=== PATIENT | female | born 1955 | race Caucasian/White ===

== ENCOUNTER 2017-06-23 07:09 | Day surgery (SDC) | payer BC ==
[~2017-06-23] VITALS: Ht 175.3 cm; Wt 167.5 kg
[~2017-06-23 07:09] MED LIST: ASPIR 8181 M1 PO; CRESTOR5 MG PO; HYZAAR 100-21 TABLET PO; NORVASC10 MG PO; PRILOSEC20 MG PO; VIMOVO 500-201 EAC1 PO
[2017-06-23 07:44] VITALS: BP 169/87
[2017-06-23 10:38] VITALS: BP 137/64
[2017-06-23 11:25] VITALS: BP 120/80
== END 2017-06-23 11:28 | disposition home or self-care (01) ==
LOC: SDC 07:09
DX: N84.0 Polyp of corpus uteri (principal); N95.0 Postmenopausal bleeding; I10 Essential (primary) hypertension; E66.9 Obesity, unspecified; Z68.43 Body mass index [BMI] 50.0-59.9, adult; K21.9 Gastro-esophageal reflux disease without esophagitis
CPT/HCPCS: 88305; J0330; J1100; J1885; J3010